=== PATIENT | male | born 1945 | race Caucasian/White ===

== ENCOUNTER → 2016-03-13 | Day surgery (SDC) | payer MEDICARE, OTHER ==
--- NOTE | 2016-03-11 21:36 | HP ---
ADMITTING HISTORY AND PHYSICAL: DATE OF ADMISSION: 03/13/16 AGE: 70 years, male. ADMITTING DIAGNOSES: 1. Left renal calculi. 2. Calculus, left ureter. 3. Left hydronephrosis. PLANNED PROCEDURE: Left ureteroscopy, possible laser and stent insertion (to be followed in near future by lithotripsy of left renal calculi). SURGEON: Dr. Vaca. HISTORY OF PRESENT ILLNESS: Ry Ramon is a 70-year-old gentleman who was evaluated for microscopic hematuria. He does have a remote history of kidney stones and had lithotripsy done several years ago at an outside facility. He was evaluated and an ultrasound was noted to have severe left hydronephrosis and hydroureter with a 9 to 10 mm calculus in the left distal ureter. In addition, he has left renal calculi. He is being brought in for left ureteroscopy, possible laser and stent insertion to be followed at some point by lithotripsy of the left renal calculi. PAST MEDICAL HISTORY: Significant for: 1. High cholesterol. 2. Kidney stones. PAST SURGICAL HISTORY: Significant for: 1. Right foot skin graft. 2. Lithotripsy. MEDICATIONS: On admission: Lipitor 10 mg a day. ALLERGIES: No known drug allergies. SMOKING HISTORY: He is a nonsmoker. PHYSICAL EXAMINATION GENERAL: Reveals a pleasant healthy appearing gentleman. VITAL SIGNS: Blood pressure is 170/110, pulse 92 per minute, temperature 97.5, oxygen saturation 96% on room air. LUNGS: Clear bilaterally. CARDIOVASCULAR: Regular rate and rhythm. S1, S2. ABDOMEN: Soft without masses. IMPRESSION: A 70-year-old gentleman with severe left hydronephrosis secondary to a large calculus in the left distal ureter and additional left renal calculi. PLAN: Planned procedure is left ureteroscopy, possible laser and stent insertion to be followed in the near future by lithotripsy of left renal calculi. CC: Dr. Jackson * [id number]/[facility] #: [id number] [facility]
[~2016-03-13] MED LIST: Buffered Lidocaine 1% SYR 3ML* 3 ML/SYR SYRINGE INTRADERM ONE; Dexamethasone IV* 4 MG/ML 1 ML (4 MG) IV SLOW PU ONE; Dexamethasone IV* 4 MG/ML 1 ML (4 MG) ONE; EPHEDrine (Pressors)* 50 MG/ML VIAL ONE; Famotidine IV* 10 MG/ML 2 ML (20 mg) IV ONE; Famotidine IV* 10 MG/ML 2 ML (20 mg) ONE; Furosemide IV* 10 MG/ML 2 ML VIAL (20 MG) ONE; Gentamicin ADULT (*) 140 MG in NS 0.9% 100 ML* 100 ML IVPB ONE; Glycopyrrolate IV* 0.2 MG/ML 1 ML VIAL ONE; Iohexol 180 (CONTRAST) 10 ML SDV IV ONE; Ketorolac INJ* 30 MG/ML 1 ML VIAL ONE; Lidocaine 2% MPF* 2 ML VIAL ONE; Midazolam* 1 MG/ML 5 ML VIAL (5 MG) ONE; Ondansetron INJ* 2 MG/ML VIAL IV PRN; Ondansetron INJ* 2 MG/ML VIAL ONE; Propofol* 10 MG/ML 20 ML BTL IV PUSH ONE; Tamsulosin CAP* 0.4 MG ONE; cefTRIAXone(*) 2 GM ADDV.VIAL IVPB ONE; fentaNYL* 50 MCG/ML 2 ML VIAL (100 MCG VIAL) IV PRN; fentaNYL* 50 MCG/ML 2 ML VIAL (100 MCG VIAL) ONE; fentaNYL* 50 MCG/ML 5 ML VIAL (250 MCG VIAL) ONE; oxyCODONE/Acetamin 5/325 MG* TAB ONE; oxyCODONE/Acetamin 5/325 MG* TAB PO PRN
--- NOTE | 2016-03-13 10:06 | RAD ---
INDICATION: Left ureteral stent insertion. COMPARISON: Comparison is made with a prior KUB study from March 11, 2016. TECHNIQUE: 0.5 seconds of intermittent fluoroscopic guidance were provided and 14 spot films of the abdomen were centered on the left side. FINDINGS: There is partial opacification of the left renal collecting system which is distended consistent with hydronephrosis. Subsequently there is placement of a double-J stent catheter on the left side which demonstrates normal course. IMPRESSION: INTRAOPERATIVE CONTROL FILMS. CPT II Codes: 6045F
[2016-03-13 13:09] VITALS: BP 134/90
--- NOTE | 2016-03-13 13:48 | RAD ---
INDICATION: Status post laser lithotripsy stent placement. COMPARISON: Comparison is made with a prior KUB from March 11, 2016. TECHNIQUE: Frontal supine films of the abdomen were obtained. FINDINGS: The small bowel and colon appear nondistended. There are several calcific densities which project over the lower pole of the left kidney. There is a double-J stent catheter on the left side which demonstrates normal course. IMPRESSION: LEFT RENAL CALCULI, STATUS POST PLACEMENT OF LEFT DOUBLE-J STENT CATHETER.
--- NOTE | 2016-03-14 15:25 | OP ---
OPERATIVE SUMMARY: DATE OF OPERATION: 03/13/16 - [facility] DATE OF : 49 SURGEON: Sidney Vaca MD. ANESTHESIOLOGIST: Dr. Up. ANESTHESIA: General. PRE-OP DIAGNOSES: 1. Left hydronephrosis. 2. Calculus, left ureter. 3. Left renal calculi. POST-OP DIAGNOSES: 1. Left hydronephrosis. 2. Calculus, left ureter. 3. Left renal calculi. OPERATIVE PROCEDURE: Cystoscopy, left retrograde pyelogram, left ureteroscopy, laser lithotripsy of large left ureteral calculus and removal of calculus fragments, and left stent insertion. INDICATIONS: Mr. Ry Ramon is a 70-year-old gentleman, who was evaluated for hematuria. He was noted to have an obstructing calculus in the left distal ureter along with additional left renal calculi. He is now being brought in for management of the left ureteral calculus. FINDINGS: 1. Moderately enlarged prostate. 2. Fairly large, 1.5 to 2 cm, calculus impacted in the left distal ureter with severe hydronephrosis and hydroureter. CONDITION: Stable. COMPLICATIONS: None. STENT USED: 7-Macanese stent, left ureter. DESCRIPTION OF PROCEDURE: After induction of general anesthesia, the patient was placed in dorsal lithotomy position. Sequential compression devices were in place and functioning. Initial cystoscopy revealed a normal-appearing urethra. The prostate was moderately enlarged prostate and obstructing. The bladder was examined and was unremarkable. A guidewire was introduced into the left orifice. Initial attempts at advancing the wire beyond the obstructing calculus were unsuccessful. Finally, a hydrophilic wire was advanced beyond the point of obstruction and an open-ended catheter was advanced. Retrograde pyelogram revealed severe left hydronephrosis and hydroureter. A 6-Macanese semi- rigid ureteroscope was introduced and advanced under direct vision. Just a couple of centimeters above the orifice, a fairly large calculus was noted to be impacted with significant surrounding edema and inflammation. The calculus was completely occupying the lumen of the ureter and there was no way I could advance the ureteroscope around the calculus. Using a 550 micron Holmium laser , laser lithotripsy was carried out. Approximately 60% of the calculus was fragmented and a lot of the fragments were retrieved and removed. Because of the large size and extensive inflammatory changes, I did not want to keep doing the laser lithotripsy for fear of injuring the ureter with too prolonged session of the laser and elected to try and bring him back a second time to finish the procedure. A repeat retrograde pyelogram revealed no evidence of extravasation and a 7-Macanese stent was introduced and positioned under fluoroscopy with good proximal and distal positioning obtained. The patient tolerated the procedure satisfactorily and was transferred back to the recovery area in stable condition. The plan will be to bring him back in a couple of weeks to finish the ureteroscopy and laser lithotripsy and he will then require shockwave lithotripsy at a later date for the renal calculi. CC: Dr. Kan Jackson; Dr. Sidney Vaca* [id number]/[facility] #: [id number] MTDD
== END | disposition home or self-care (01) ==
LOC: OR 06:19
PROVIDERS: ATTEND Urology
PROC: 0T778DZ Dilation of Left Ureter with Intraluminal Device, Via Natural or Artificial Opening Endoscopic (ICD-10-PCS; 2016-03-13)
PROC: 0TF78ZZ Fragmentation in Left Ureter, Via Natural or Artificial Opening Endoscopic (ICD-10-PCS; principal; 2016-03-13 07:45)
DX: N13.2 Hydronephrosis with renal and ureteral calculous obstruction (principal); N40.0 Benign prostatic hyperplasia without lower urinary tract symptoms; E78.00 Pure hypercholesterolemia, unspecified
CPT/HCPCS: 74000; 74420; 82365; 88300; A9270-GY; C1876; J0696; J1100; J1580; J1885; J1940; J2250; J2405; J2704; J3010

== ENCOUNTER → 2016-04-07 | Day surgery (SDC) | payer MEDICARE ==
--- NOTE | 2016-04-02 20:13 | HP ---
ADMITTING HISTORY AND PHYSICAL: DATE OF ADMISSION: 04/07/16 AGE: 70 years, male. SURGEON: Sidney Vaca MD ADMITTING DIAGNOSES: 1. Left ureteral calculus. 2. Left renal calculi. PLANNED PROCEDURES: 1. Left ureteroscopy, possible laser lithotripsy and left stent replacement. 2. Shockwave lithotripsy of left renal calculi. HISTORY OF PRESENT ILLNESS: Ry Ramon is a 70-year-old gentleman who was evaluated and noted to have multiple left renal and large left ureteral calculus. He had undergone laser lithotripsy on 03/13/16 with significant fragmentation and removal; however, because the calculus was very large and impacted, he is now being brought in for a followup procedure to complete the treatment of the left ureteral calculus and also for treatment of left renal calculi. PAST MEDICAL HISTORY: Significant for: 1. Kidney stones. 2. High cholesterol. MEDICATIONS: 1. Lipitor 10 mg a day. 2. Potassium citrate 20 mEq twice a day. ALLERGIES: No known drug allergies. SOCIAL HISTORY: Smoking history, he is a nonsmoker. PHYSICAL EXAMINATION GENERAL: Reveals a pleasant middle-aged gentleman. VITAL SIGNS: Blood pressure is 140/92, pulse 112 per minute, oxygen saturation 98%. LUNGS: Clear bilaterally. CARDIOVASCULAR: Regular rate and rhythm. S1 and S2. ABDOMEN: Soft with mild left flank tenderness. His stone analysis from the ureteroscopy that I had done had revealed 80% uric acid and 20% calcium oxalate calculus. IMPRESSION AND PLAN: A 70-year-old gentleman for left ureteroscopy, laser lithotripsy and stent replacement and shockwave lithotripsy of left renal calculi. I have discussed the procedure in detail with Mr. Ramon including possible risks of bleeding, infection, incomplete fragmentation and he appears to understand and wishes to proceed as planned. CC: Dr. Jackson; Sidney Vaca MD * [id number]/[facility] #: [id number] [facility]
[~2016-04-07] MED LIST changes: +Buffered Lidocaine 1% SYR 3ML* 3 ML/SYR SYRINGE ONE; -Dexamethasone IV* 4 MG/ML 1 ML (4 MG) IV SLOW PU ONE; -EPHEDrine (Pressors)* 50 MG/ML VIAL ONE; -Famotidine IV* 10 MG/ML 2 ML (20 mg) IV ONE; -Famotidine IV* 10 MG/ML 2 ML (20 mg) ONE; -Furosemide IV* 10 MG/ML 2 ML VIAL (20 MG) ONE; -Gentamicin ADULT (*) 140 MG in NS 0.9% 100 ML* 100 ML IVPB ONE; +Gentamicin ADULT (*) 160 MG in NS 0.9% 100 ML* 100 ML IVPB SCH; -Glycopyrrolate IV* 0.2 MG/ML 1 ML VIAL ONE; -Ketorolac INJ* 30 MG/ML 1 ML VIAL ONE; -Midazolam* 1 MG/ML 5 ML VIAL (5 MG) ONE; -Ondansetron INJ* 2 MG/ML VIAL IV PRN; +Sodium Citrate/Citric Acid* 15 ML UDC ONE; +Sodium Citrate/Citric Acid* 15 ML UDC PO ONE; -fentaNYL* 50 MCG/ML 5 ML VIAL (250 MCG VIAL) ONE; -oxyCODONE/Acetamin 5/325 MG* TAB ONE; -oxyCODONE/Acetamin 5/325 MG* TAB PO PRN
--- NOTE | 2016-04-07 16:35 | RAD ---
INDICATION: Left-sided nephrolithiasis. Lithotripsy. COMPARISON: March 13, 2016 TECHNIQUE: A single view of the abdomen is submitted. FINDINGS: Bones: There are no acute bony findings. Soft tissues: The soft tissues appear normal. The psoas margins are sharp. Bowel gas pattern: Normal Calcifications: There is a fragmented calculus projecting over the lower pole of the left kidney appearing unchanged. Other: Left ureteral stent, unchanged IMPRESSION: FRAGMENTED LOWER POLE LEFT RENAL CALCULUS. LEFT URETERAL STENTING.
[2016-04-07 22:01] VITALS: BP 128/91
--- NOTE | 2016-04-07 22:12 | RAD ---
INDICATION: Postoperative study stent placement. COMPARISON: Comparison is made with a prior study from April 07, 2016 from approximately 5 hours earlier. TECHNIQUE: Frontal supine films of the abdomen were obtained. FINDINGS: The small bowel and colon appear nondistended. There is a double-J stent catheter present on the left side which demonstrates normal course. The previously noted fragmented calculus over the lower pole of the left kidney appears less prominent. IMPRESSION: LEFT-SIDED NEPHROLITHIASIS, STATUS POST DOUBLE-J STENT CATHETER PLACEMENT.
--- NOTE | 2016-04-09 04:15 | OP ---
DATE OF OPERATION: 04/07/16 - [facility] DATE OF : [birth year] - AGE: 70 years, male SURGEON: Dr. Vaca. ANESTHESIOLOGIST: Dr. Valle. ANESTHESIA: General. PRE-OP DIAGNOSES: 1. Left ureteral calculus. 2. Left renal calculi. 3. Left hydronephrosis. POST-OP DIAGNOSES: 1. Left ureteral calculus. 2. Left renal calculi. 3. Left hydronephrosis. OPERATIVE PROCEDURE: 1. Cystoscopy, left stent removal. 2. Left retrograde pyelogram. 3. Left ureteroscopy and laser lithotripsy of left ureteral calculus and removal of calculus fragments. 4. Left stent insertion. 5. Shockwave lithotripsy of left renal calculi. COMPLICATIONS: None. STENT USED: 7-Cambodian, 28 cm silicone stent, left ureter. POSTOPERATIVE CONDITION: Stable. OPERATIVE FINDINGS: 1. Moderately enlarged prostate. 2. Large calculus, left distal ureter with severe left hydronephrosis and hydroureter. 3. Left renal calculi. INDICATIONS: Ry Ramon is a 70-year-old gentleman with a history of a large obstructing calculus in the left ureter as well as left renal calculi. DESCRIPTION OF PROCEDURE: After induction of general anesthesia, the patient was placed in dorsal lithotomy position. Sequential compression devices were in place and functioning. Initial cystoscopy revealed a normal-appearing urethra, a moderately enlarged prostate. The bladder was examined. The previously placed stent was removed. Retrograde pyelogram revealed persistent significant dilatation of the left collecting system and left proximal ureter in spite of having had it stented. I suspect this is going to be a chronic finding because of the fact that the stone had probably been impacted in the distal ureter for several months. A 6-Cambodian semi-rigid ureteroscope was introduced and advanced under direct vision in the distal ureter. There was still a fairly large stone seen (in spite of extensive fragmentation a few weeks earlier). This was fragmented using a 550 micron Holmium laser and all of the sizable fragments were removed. A new 7- Cambodian, 28 cm silicone stent was positioned under fluoroscopy with good proximal and distal positioning obtained. Next, the patient was placed on the lithotripsy table in supine position. There was a cluster of small stones in the mid to lower pole area of the left kidney and these were targeted with shock waves at a rate of 90 shocks per minute. A total of 450 shocks were administered. The patient tolerated the procedure satisfactorily and was transferred back to the recovery area in stable condition. CC: Dr. Jackson * [id number]/[facility] #: [id number] [place]
== END | disposition home or self-care (01) ==
LOC: OR 16:07
PROVIDERS: ATTEND Urology
DX: N13.2 Hydronephrosis with renal and ureteral calculous obstruction (principal); Z68.31 Body mass index [BMI] 31.0-31.9, adult; E78.00 Pure hypercholesterolemia, unspecified
CPT/HCPCS: 74000; A9270-GY; C1876; J0696; J1100; J1580; J2405; J2704; J3010

== ENCOUNTER 2016-07-28 08:54 | Day surgery (SDC) | payer MEDICARE ==
--- NOTE | 2016-07-23 21:20 | HP ---
ADMITTING HISTORY AND PHYSICAL: DATE OF ADMISSION: 07/28/16 AGE: 70 years, male. ADMITTING DIAGNOSES: 1. Left renal calculi. 2. Left hydronephrosis. PLANNED PROCEDURES: Left retrograde, left ureteroscopy and stent insertion, and shockwave lithotripsy of left renal calculi. SURGEON: Dr. Vaca. HISTORY: Ry Ramon is a 70-year-old gentleman who had originally been evaluated for microscopic hematuria. He was noted to have a large obstructing calculus in the left distal ureter and multiple left renal calculi. He had undergone left ureteroscopy and laser lithotripsy and shockwave lithotripsy and still has residual calculi in the left kidney. In addition, his most recent ultrasound had revealed mild left hydronephrosis and because he had a large calculus impacted in the left distal ureter, he certainly is at higher risk for stricture in the ureter. He is now being brought in for further evaluation and management of the left hydronephrosis and left renal calculi. PAST MEDICAL HISTORY: Significant for: 1. Renal calculi. 2. High cholesterol. MEDICATIONS: On admission: 1. Potassium citrate 20 mEq twice a day. 2. Lipitor 10 mg daily. ALLERGIES: No known drug allergies. REVIEW OF SYSTEMS: He is otherwise in excellent health. He denies any chest pain or shortness of breath. PHYSICAL EXAMINATION GENERAL: A pleasant gentleman who is alert and oriented. VITAL SIGNS: Blood pressure is 128/80, pulse 72 per minute and regular. Oxygen saturation 98% on room air. LUNGS: Clear bilaterally. CARDIOVASCULAR: Regular rate and rhythm. S1, S2. ABDOMEN: Soft with mild left flank tenderness. IMPRESSION: A 70-year-old gentleman with residual calculi in the left kidney and mild left hydronephrosis. Plan is for left retrograde, left ureteroscopy and stent insertion, and shockwave lithotripsy of left renal calculi. CC: Dr. Jackson* [id number]/[facility] #: [id number] [facility]
[~2016-07-28 08:54] MED LIST changes: -Buffered Lidocaine 1% SYR 3ML* 3 ML/SYR SYRINGE INTRADERM ONE; -Buffered Lidocaine 1% SYR 3ML* 3 ML/SYR SYRINGE ONE; +Buffered Lidocaine 1% SYRIN* 5 ML/SYR SYRINGE INTRADERM ONE; +Buffered Lidocaine 1% SYRIN* 5 ML/SYR SYRINGE ONE; -Dexamethasone IV* 4 MG/ML 1 ML (4 MG) ONE; +Famotidine IV* 10 MG/ML 2 ML (20 mg) IV ONE; +Famotidine IV* 10 MG/ML 2 ML (20 mg) ONE; -Gentamicin ADULT (*) 160 MG in NS 0.9% 100 ML* 100 ML IVPB SCH; -Iohexol 180 (CONTRAST) 10 ML SDV IV ONE; -Lidocaine 2% MPF* 2 ML VIAL ONE; +Metoclopramide TAB* 10 MG ONE; +Metoclopramide TAB* 10 MG PO ONE; -Ondansetron INJ* 2 MG/ML VIAL ONE; -Propofol* 10 MG/ML 20 ML BTL IV PUSH ONE; -Sodium Citrate/Citric Acid* 15 ML UDC ONE; -Sodium Citrate/Citric Acid* 15 ML UDC PO ONE; -Tamsulosin CAP* 0.4 MG ONE; -fentaNYL* 50 MCG/ML 2 ML VIAL (100 MCG VIAL) IV PRN; -fentaNYL* 50 MCG/ML 2 ML VIAL (100 MCG VIAL) ONE
--- NOTE | 2016-07-28 09:26 | RAD ---
HISTORY: Shock wave lithotripsy COMPARISONS: July 10, 2016 VIEWS: Frontal views of the abdomen. FINDINGS: BOWEL: There is a nonspecific bowel gas pattern, with nondilated small bowel gas noted. CALCULI: There are multiple calculi overlying the left renal parenchymal shadow, including a large calculus overlying the left lower pole measuring up to 2.2 cm. These are stable. BONES AND SOFT TISSUES: Degenerative changes are noted of the spine OTHER FINDINGS: The lung bases are clear. There is no subphrenic gas. IMPRESSION: LEFT NEPHROLITHIASIS
[2016-07-28] MEDS ORDERED: Ketorolac INJ* 30 MG/ML 1 ML VIAL ONE (10:07)
[2016-07-28] MEDS ORDERED: Propofol* 10 MG/ML 20 ML BTL IV PUSH ONE (10:07)
[2016-07-28] MEDS ORDERED: Lidocaine 2% PF * 5 ML VIAL ONE (10:07)
[2016-07-28] MEDS ORDERED: Ondansetron INJ* 2 MG/ML VIAL ONE (10:07)
[2016-07-28] MEDS ORDERED: Dexamethasone IV* 4 MG/ML 1 ML (4 MG) ONE (10:07)
[2016-07-28] MEDS ORDERED: fentaNYL* 50 MCG/ML 2 ML VIAL (100 MCG VIAL) ONE ×2 (10:08→12:31)
[2016-07-28] MEDS ORDERED: Midazolam* 1 MG/ML 5 ML VIAL (5 MG) ONE (10:08)
[2016-07-28] MEDS ORDERED: KETAMINE HCL* 50 MG/ML 10 ML VIAL ONE (10:08)
[2016-07-28] MEDS ORDERED: Iohexol 180 (CONTRAST) 10 ML SDV IV ONE ×2 (10:47→11:24)
[2016-07-28] MEDS ORDERED: fentaNYL* 50 MCG/ML 2 ML VIAL (100 MCG VIAL) IV PRN (11:18)
[2016-07-28] MEDS ORDERED: Ondansetron INJ* 2 MG/ML VIAL IV PRN (11:18)
[2016-07-28 15:23] VITALS: BP 135/84
--- NOTE | 2016-07-29 16:40 | OP ---
CC: Dr. Jackson; Dr. Vaca OPERATIVE REPORT: DATE OF OPERATION: 07/28/16 DATE OF : [birth year] AGE/SEX: 70 years, male. SURGEON: Sidney Vaca MD. ANESTHESIOLOGIST: Dr. Hill. ANESTHESIA: General. PRE-OP DIAGNOSES: 1. Left renal calculi. 2. Left hydronephrosis. POST-OP DIAGNOSES: 1. Left renal calculi. 2. Left hydronephrosis. 3. Multiple left ureteral calculi. OPERATIVE PROCEDURES: 1. Cystoscopy, left retrograde pyelogram, left ureteroscopy and laser lithotripsy, and left stent i nsertion. 2. Shockwave lithotripsy of left renal calculi. COMPLICATIONS: None. STENT USED: 7-Sierra Leonean stent, left ureter. OPERATIVE FINDINGS: 1. Moderately large prostate. 2. Multiple left distal ureteral calculi with left hydronephrosis. 3. Left renal calculi. INDICATIONS: Ry Ramon is a 70-year-old gentleman with a history of recurrent renal and ureteral c alculi. DESCRIPTION OF PROCEDURE: After induction of general anesthesia, the patient was placed in dorsal l ithotomy position. Sequential compression devices were in place and functioning. Initial cystoscop y revealed a normal-appearing urethra, a moderately large prostate. The bladder was examined and wa s unremarkable. A guidewire was introduced into the left ureter. Retrograde pyelogram revealed lef t hydronephrosis. A 6-Sierra Leonean semi-rigid ureteroscope was introduced and advanced under direct visio n. In the distal ureter, 3 calculi were noted each being about 7- 8 mm. Using a 550 micron Holmium laser, these were successfully fragmented and all of the sizable fragments were retrieved. A 7-Morro nch stent was introduced and positioned under fluoroscopy with good proximal and distal positioning obtained. Next, the patient was placed on the lithotripsy table in supine position. The cluster of calculi in the lower pole of the left kidney was identified under fluoroscopy and shockwave lithotripsy was ca rried out at a rate of 90 shocks per minute. After the initial 300 shocks, there was a pause in lit hotripsy for several minutes in an effort to minimize any potential trauma to the kidney. Lithotrip sy was then resumed and a total of 2000 shocks were administered. The patient tolerated the procedu re satisfactorily and was transferred back to the recovery area in stable condition. [id number]/[facility] #: [id number]
== END 2016-07-28 15:24 | disposition home or self-care (01) ==
LOC: OR 08:54
PROVIDERS: ATTEND Urology
DX: N13.2 Hydronephrosis with renal and ureteral calculous obstruction (principal); E78.00 Pure hypercholesterolemia, unspecified
CPT/HCPCS: 74000; 82365; 88300; A9270-GY; C1876; J0696; J1100; J1580; J1885; J2250; J2405; J2704; J3010

== ENCOUNTER 2018-03-22 08:23 | Day surgery (SDC) | payer MEDICARE ==
--- NOTE | 2018-03-05 15:52 | HP ---
CC: Dr. Jackson; Sidney Vaca MD* ADMITTING HISTORY AND PHYSICAL: DATE OF ADMISSION: 03/22/18 ADMITTING DIAGNOSIS: Left renal calculi. PLANNED PROCEDURE: Shock wave lithotripsy of left renal calculi. SURGEON: Dr. Vaca. HISTORY OF PRESENT ILLNESS: Ry Ramon is a 72-year-old gentleman with a history of recurrent renal calculi. He has previously been treated for left renal calculi and recently on followup was noted to have new or residual ( likely a combination of both) left renal calculi. PAST MEDICAL HISTORY: Significant for high cholesterol, BPH, and recurrent renal calculi. MEDICATIONS: On admission: 1. Flomax 0.4 mg once a day. 2. Lipitor 10 mg daily. 3. Potassium citrate 20 mg twice a day. 4. Hydrochlorothiazide 12.5 mg daily. ALLERGIES: No known drug allergies. REVIEW OF SYSTEMS: He is otherwise in excellent health. He denies any chest pain or shortness of breath. He has no history of diabetes mellitus or any other major systemic illness. PHYSICAL EXAMINATION GENERAL: Reveals a pleasant middle-aged gentleman. VITAL SIGNS: Blood pressure is 136/90, pulse 95 per minute regular, oxygen saturation 96% on room air. LUNGS: Clear bilaterally. CARDIOVASCULAR EXAM: Regular rate and rhythm. S1, S2 ABDOMEN: Soft without masses. IMPRESSION: A 72-year-old gentleman with left renal calculi. I have discussed the procedure of lithotripsy and possible risks of bleeding, infection , incomplete fragmentation, and obstructing fragments requiring later stent insertion. PLAN/RECOMMENDATIONS: Shock wave lithotripsy of left renal calculi. [id number]/[facility] #: [id number] [facility] [place]
[~2018-03-22 08:23] MED LIST changes: +Buffered Lidocaine 1% SYRIN* 1 ML/SYRINGE INTRADERM ONE; -Buffered Lidocaine 1% SYRIN* 5 ML/SYR SYRINGE INTRADERM ONE; -Buffered Lidocaine 1% SYRIN* 5 ML/SYR SYRINGE ONE; +Dexamethasone IV* 4 MG/ML 1 ML (4 MG) IV SLOW PU ONE; -Famotidine IV* 10 MG/ML 2 ML (20 mg) ONE; +Lactated Ringers 1000 ML Bag* 1,000 ML IV SCH; -Metoclopramide TAB* 10 MG ONE; -Metoclopramide TAB* 10 MG PO ONE; -cefTRIAXone(*) 2 GM ADDV.VIAL IVPB ONE
[2018-03-22] MEDS ORDERED: Famotidine IV* 10 MG/ML 2 ML (20 mg) ONE (09:47)
[2018-03-22] MEDS ORDERED: Buffered Lidocaine 1% SYRIN* 1 ML/SYRINGE ONE (09:48)
[2018-03-22] MEDS ORDERED: Dexamethasone IV* 4 MG/ML 1 ML (4 MG) ONE (09:48)
[2018-03-22] MEDS ORDERED: cefTRIAXone(*) 2 GM ADDV.VIAL IVPB ONE (09:48)
[2018-03-22] MEDS ORDERED: Lidocaine 2% PF * 5 ML VIAL ONE (10:00)
[2018-03-22] MEDS ORDERED: Propofol* 10 MG/ML 20 ML BTL ONE (10:00)
[2018-03-22] MEDS ORDERED: fentaNYL* 50 MCG/ML 2 ML VIAL (100 MCG VIAL) ONE (10:00)
[2018-03-22] MEDS ORDERED: Ondansetron INJ* 2 MG/ML VIAL ONE (10:00)
[2018-03-22] MEDS ORDERED: EPHEDrine (Pressors)* 50 MG/ML VIAL ONE (11:16)
[2018-03-22] MEDS ORDERED: Furosemide IV* 10 MG/ML 2 ML VIAL (20 MG) ONE (11:33)
[2018-03-22] MEDS ORDERED: Naloxone* 0.4 MG/ML 1 ML VIAL IV PRN (12:10)
[2018-03-22] MEDS ORDERED: DiMENhydriNATE IV* 50 MG/ML VIAL IV PUSH PRN (12:10)
[2018-03-22] MEDS ORDERED: fentaNYL* 50 MCG/ML 2 ML VIAL (100 MCG VIAL) IV PRN (12:10)
[2018-03-22 13:30] VITALS: BP 118/91
--- NOTE | 2018-03-22 20:30 | OP ---
CC: Dr. Jackson * DATE OF OPERATION: 03/22/18 - [facility] DATE OF : 49 SURGEON: Sidney Vaca MD ANESTHESIOLOGIST: Dr. Rangel. ANESTHESIA: General. PRE-OP DIAGNOSIS: Left renal calculi. POST-OP DIAGNOSIS: Left renal calculi. OPERATIVE PROCEDURE: Shockwave lithotripsy of left renal calculi. INDICATIONS: Ry Ramon is a 72-year-old gentleman who had previously been evaluated and treated for left renal and ureteral calculi. He was recently noted to have a large left renal calculus with an additional smaller left renal lower pole calculus. COMPLICATIONS: None. POSTOPERATIVE CONDITION: Stable. DESCRIPTION OF PROCEDURE: After induction of general anesthesia, the patient was placed on the lithotripsy table in supine position. The 2 calculi which were adjacent to each other were localized using fluoroscopy and shockwave lithotripsy was commenced at a rate of 90 shocks per minute. After the initial 300 shocks, there was a pause in lithotripsy for several minutes in an effort to minimize any potential trauma to the kidney. Lithotripsy was then resumed and a total of 2400 shocks were administered with good fragmentation observed. The patient tolerated the procedure satisfactorily and was transferred back to the recovery area in stable condition. [id number]/[facility] #: [id number] MTDValencia
== END 2018-03-22 13:32 | disposition home or self-care (01) ==
LOC: OR 08:23
PROVIDERS: ATTEND Urology
DX: N20.0 Calculus of kidney (principal); E78.00 Pure hypercholesterolemia, unspecified; N40.0 Benign prostatic hyperplasia without lower urinary tract symptoms; Z68.31 Body mass index [BMI] 31.0-31.9, adult
CPT/HCPCS: 74018; J0696; J1100; J1940; J2405; J2704; J3010